=== PATIENT | female | born 1985 | race Caucasian/White ===

== ENCOUNTER 2019-09-05 14:18 | Emergency (ER) | payer BC ==
[~2019-09-05] VITALS: Ht 162.6 cm; Wt 67.3 kg
--- NOTE | 2019-09-05 14:40 | NUR ---
MUSA MEJIA BS FOR EXAM. PT A&OX4, RESP EVEN & UNLABORED, SPEECH CLEAR, ABLE TO SPEAK IN COMPLETE SENTENCES, SKIN WNL.
[2019-09-05] MEDS ORDERED: ESCI10TA10 PO (14:47)
--- NOTE | 2019-09-05 14:51 | NUR ---
PT AWAITING RESULTS OF 3RD COVID TEST (DONE THIS PAST TUESDAY AT [facility]). LAB AT
[2019-09-05 15:04] LABS: BASOPHILS # (AUTO) 0.06 x10^3/uL (0-0.1); BASOPHILS % (AUTO) 1 % (0-1); EOSINOPHILS # (AUTO) 0.28 x10^3/uL (0-0.4); EOSINOPHILS % (AUTO) 3 % (1-7); LYMPHOCYTES # (AUTO) 2.38 x10^3/uL (1-3.4); LYMPHOCYTES % (AUTO) 25 % (22-44); MD NO; MEAN CORPUSCULAR HEMOGLOBIN 27.4 pg (27.0-34.8); MEAN PLATELET VOLUME 8.1 fL (7.4-10.4); MONOCYTES # (AUTO) 0.46 x10^3/uL (0.2-0.8); MONOCYTES % (AUTO) 5 % (2-9); NEUTROPHILS # (AUTO) 6.26 x10^3/uL (1.8-6.8); NEUTROPHILS % (AUTO) 66 % (42-75); PLATELET COUNT 256 x10^3/uL (130-400); RED BLOOD COUNT 4.87 x10^6/uL (3.82-5.3); RED CELL DISTRIBUTION WIDTH 12.7 % (9.6-15.2)
[2019-09-05 15:25] VITALS: BP 107/64
== END 2019-09-05 15:27 | disposition home or self-care (01) ==
LOC: ED 14:50
DX: B34.9 Viral infection, unspecified (principal); R07.9 Chest pain, unspecified; M79.10 Myalgia, unspecified site; R42 Dizziness and giddiness
CPT/HCPCS: 36415; 71045; 85025; 93005; 99284; 99285